=== PATIENT | female | born 1975 | race Caucasian/White ===

== ENCOUNTER → 2024-04-19 08:40 | Outpatient (REF) | payer OTHER, SELFPAY | LOC: MRI 3T 08:40 | PROVIDERS: FAMILY PHYSICIAN Internal Medicine Pulmonary Disease | DX: D84.821 Immunodeficiency due to drugs (principal); Z79.899 Other long term (current) drug therapy; Z51.81 Encounter for therapeutic drug level monitoring | CPT/HCPCS: 70551; 72141; 72146 ==

== ENCOUNTER → 2024-10-04 08:54 | Outpatient (REF) | payer OTHER, SELFPAY | LOC: MRI 3T 08:54 | PROVIDERS: ATTENDING PHYSICIAN Surgery | DX: N60.82 Other benign mammary dysplasias of left breast (principal) | CPT/HCPCS: 77049; A9585 ==

== ENCOUNTER → 2025-04-06 09:37 | Outpatient (REF) | payer OTHER, SELFPAY | LOC: MRI 3T 09:37 | PROVIDERS: ATTENDING PHYSICIAN Psychiatry & Neurology Neurology; FAMILY PHYSICIAN Internal Medicine Pulmonary Disease | DX: G35.A Relapsing-remitting multiple sclerosis (principal); D84.821 Immunodeficiency due to drugs; Z51.81 Encounter for therapeutic drug level monitoring | CPT/HCPCS: 70551; 72141; 72146 ==